=== PATIENT | male | born 1975 | race Caucasian/White ===

== ENCOUNTER 2022-02-26 09:48 | Inpatient (IN) | payer MEDICARE, MEDICAID ==
[~2022-02-26] VITALS: Ht 175.3 cm; Wt 91.3 kg
[2022-02-26 10:43] LABS: HEMATOCRIT 42.2 % (42.0-52.0); HEMOGLOBIN 14.2 g/dl (13.5-17.5); MEAN CORPUSCULAR HEMOGLOBIN 31.4 pg (27.0-33.0); MEAN CORPUSCULAR HGB CONC 33.6 g/dl (32.0-36.5); MEAN CORPUSCULAR VOLUME 93.4 fl (80.0-96.0); PLATELET COUNT, AUTOMATED 222 10^3/uL (150-450); RED BLOOD COUNT 4.52 10^6/uL (4.30-6.10); WHITE BLOOD COUNT 10.1 10^3/uL (4.0-10.0)
[2022-02-26 11:12] LABS: AMPHETAMINES LEVEL URINE NEGATIVE (NEGATIVE); BARBITURATES URINE NEGATIVE (NEGATIVE); BENZODIAZEPINES URINE NEGATIVE (NEGATIVE); CANNABINOIDS URINE NEGATIVE (NEGATIVE); COCAINE METABOLITE URINE NEGATIVE (NEGATIVE); METHADONE URINE NEGATIVE (NEGATIVE); OPIATES URINE NEGATIVE (NEGATIVE); PHENCYCLIDINE URINE NEGATIVE (NEGATIVE)
[2022-02-26 11:20] LABS: ACETAMINOPHEN LEVEL < 2.0 UG/ML (10.0-30.0); ALBUMIN 3.3 GM/DL (3.2-5.2); ALT/SGPT 101 U/L (12-78); BILIRUBIN,DIRECT 0.1 MG/DL (0.0-0.2); BILIRUBIN,TOTAL 0.4 MG/DL (0.2-1.0); BLOOD UREA NITROGEN 14 MG/DL (7-18); CARBON DIOXIDE LEVEL 24 MEQ/L (21-32); CHLORIDE LEVEL 110 MEQ/L (98-107); ETHYL ALCOHOL (ETHANOL) < 0.003 % (0.000-0.010); GLOMERULAR FILTRATION RATE > 60.0 (>60); GLUCOSE, FASTING 98 MG/DL (70-100); POTASSIUM SERUM 4.1 MEQ/L (3.5-5.1); SODIUM LEVEL 141 MEQ/L (136-145); TOTAL PROTEIN 6.8 GM/DL (6.4-8.2)
[2022-02-26 11:26] LABS: RSV AMPLIFICATION NEGATIVE (NEGATIVE)
[2022-02-26] MEDS ORDERED: MOM 30ML SUSPENSION UDC PO PRN (12:40)
[2022-02-26] MEDS ORDERED: DIVA250T67 PO (13:42)
[2022-02-26] MEDS ORDERED: VASC1CAP2 PO (13:42)
[2022-02-26] MEDS ORDERED: DIVA500T94 PO (13:42)
[2022-02-26] MEDS ORDERED: ANOR1AER INH (13:42)
[2022-02-26] MEDS ORDERED: BENZ2TAB5 PO (13:42)
[2022-02-26] MEDS ORDERED: INVE156I IM (13:42)
[2022-02-26] MEDS ORDERED: QUET400T2 PO (13:42)
[2022-02-26] MEDS ORDERED: CLON0.5T2 PO (13:42)
[2022-02-26] MEDS ORDERED: ALBU8.5H INH (13:42)
[2022-02-26] MEDS ORDERED: HOME MED LIST COMPLETE! XX SCH (13:45)
[2022-02-26 17:35] VITALS: BP 122/73
[2022-02-26] MEDS: NICOTINE 21MG/24HR 1 EA TRANSDERMAL TD SCH (17:40)
[2022-02-26] MEDS: ACETAMINOPHEN TAB 650MG DOSE (2X325MG) PO PRN (19:35)
[2022-02-26] MEDS: traZODone 50 MG TAB PO PRN (21:31)
[2022-02-27] MEDS: ALBUTEROL 90 MCG/ACT 8GM HFA INHALER INH PRN ×2 (01:00→20:36)
[2022-02-27] MEDS: ACETAMINOPHEN TAB 650MG DOSE (2X325MG) PO PRN ×3 (01:47→20:37)
[2022-02-27] MEDS: LORazepam 1 MG TAB PO PRN ×2 (02:38→10:17)
[2022-02-27 06:49] VITALS: BP 116/56
[2022-02-27] MEDS: SALMETEROL DISKUS 50MCG INHALER (SEREVENT) INH SCH ×2 (08:31→20:06)
[2022-02-27] MEDS: TIOTROPIUM INHALER/CAPSULE (SPIRIVA) INH SCH (08:31)
[2022-02-27] MEDS: NICOTINE 21MG/24HR 1 EA TRANSDERMAL TD SCH (08:39)
[2022-02-27] MEDS: BENZTROPINE 2 MG TAB PO SCH ×2 (11:49→20:07)
[2022-02-27] MEDS: DIVALPROEX 250 MG TAB PO SCH (11:49)
[2022-02-27 18:00] VITALS: BP 126/82
[2022-02-27] MEDS: DIVALPROEX 500 MG TAB PO SCH (20:06)
[2022-02-27] MEDS: QUEtiapine FUMARATE 200 MG TAB PO SCH (20:07)
[2022-02-27] MEDS: traZODone 50 MG TAB PO PRN (20:37)
[2022-02-28] MEDS: ACETAMINOPHEN TAB 650MG DOSE (2X325MG) PO PRN ×3 (06:34→20:08)
[2022-02-28] MEDS: LORazepam 1 MG TAB PO PRN (06:34)
[2022-02-28 07:09] VITALS: BP 149/81
[2022-02-28] MEDS: BENZTROPINE 2 MG TAB PO SCH ×2 (08:46→20:09)
[2022-02-28] MEDS: SALMETEROL DISKUS 50MCG INHALER (SEREVENT) INH SCH ×2 (08:46→19:22)
[2022-02-28] MEDS: TIOTROPIUM INHALER/CAPSULE (SPIRIVA) INH SCH (08:46)
[2022-02-28] MEDS: DIVALPROEX 250 MG TAB PO SCH (08:47)
[2022-02-28] MEDS ORDERED: DIVALPROEX 250 MG TAB PO ONE (09:25)
[2022-02-28] MEDS: NICOTINE 21MG/24HR 1 EA TRANSDERMAL TD SCH (09:46)
[2022-02-28] MEDS: ALBUTEROL 90 MCG/ACT 8GM HFA INHALER INH PRN (12:51)
[2022-02-28 18:57] VITALS: BP 148/90
[2022-02-28] MEDS: traZODone 50 MG TAB PO PRN (20:08)
[2022-02-28] MEDS: DIVALPROEX 500 MG TAB PO SCH (20:09)
[2022-02-28] MEDS: QUEtiapine FUMARATE 200 MG TAB PO SCH (20:10)
[2022-03-01 06:12] VITALS: BP 124/84
[2022-03-01] MEDS: SALMETEROL DISKUS 50MCG INHALER (SEREVENT) INH SCH ×2 (08:15→20:02)
[2022-03-01] MEDS: BENZTROPINE 2 MG TAB PO SCH ×2 (08:16→20:03)
[2022-03-01] MEDS: NICOTINE 21MG/24HR 1 EA TRANSDERMAL TD SCH (08:16)
[2022-03-01] MEDS: TIOTROPIUM INHALER/CAPSULE (SPIRIVA) INH SCH (08:16)
[2022-03-01] MEDS: DIVALPROEX 250 MG TAB PO SCH (08:16)
[2022-03-01] MEDS: ALBUTEROL 90 MCG/ACT 8GM HFA INHALER INH PRN (08:19)
[2022-03-01] MEDS ORDERED: NICO21PAT TD (08:48)
[2022-03-01] MEDS ORDERED: DIVA500T94 PO (08:48)
[2022-03-01] MEDS ORDERED: INVE156I IM (08:48)
[2022-03-01] MEDS ORDERED: TRAZ-252 PO (08:48)
[2022-03-01] MEDS ORDERED: QUET400T2 PO (08:48)
[2022-03-01] MEDS ORDERED: DIVALPROEX 250 MG TAB PO ONE (09:00)
[2022-03-01] MEDS: LORazepam 1 MG TAB PO PRN (13:32)
[2022-03-01] MEDS: ACETAMINOPHEN TAB 650MG DOSE (2X325MG) PO PRN ×2 (13:33→23:18)
[2022-03-01 18:52] VITALS: BP 158/91
[2022-03-01] MEDS: traZODone 50 MG TAB PO PRN (20:03)
[2022-03-01] MEDS: DIVALPROEX 500 MG TAB PO SCH (20:03)
[2022-03-01] MEDS: QUEtiapine FUMARATE 200 MG TAB PO SCH (20:03)
[2022-03-02] MEDS: MAALOX 30 ML SUSP *UDC PO PRN (03:50)
[2022-03-02] MEDS: LORazepam 1 MG TAB PO PRN (05:11)
[2022-03-02 07:11] VITALS: BP 137/85
[2022-03-02] MEDS: DIVALPROEX 250 MG TAB PO SCH (08:01)
[2022-03-02] MEDS: SALMETEROL DISKUS 50MCG INHALER (SEREVENT) INH SCH ×2 (08:01→20:28)
[2022-03-02] MEDS: TIOTROPIUM INHALER/CAPSULE (SPIRIVA) INH SCH (08:01)
[2022-03-02] MEDS: NICOTINE 21MG/24HR 1 EA TRANSDERMAL TD SCH ×2 (08:01→08:30)
[2022-03-02] MEDS: BENZTROPINE 2 MG TAB PO SCH ×2 (08:01→20:29)
[2022-03-02] MEDS: ALBUTEROL 90 MCG/ACT 8GM HFA INHALER INH PRN ×2 (08:08→13:33)
[2022-03-02 18:00] VITALS: BP 162/92
[2022-03-02] MEDS: ACETAMINOPHEN TAB 650MG DOSE (2X325MG) PO PRN (19:27)
[2022-03-02] MEDS: traZODone 50 MG TAB PO PRN (20:29)
[2022-03-02] MEDS: QUEtiapine FUMARATE 200 MG TAB PO SCH (20:30)
[2022-03-02] MEDS: DIVALPROEX 500 MG TAB PO SCH (20:30)
[2022-03-03] MEDS: ACETAMINOPHEN TAB 650MG DOSE (2X325MG) PO PRN (05:48)
[2022-03-03] MEDS: MAALOX 30 ML SUSP *UDC PO PRN (05:49)
[2022-03-03] MEDS: TIOTROPIUM INHALER/CAPSULE (SPIRIVA) INH SCH (07:23)
[2022-03-03] MEDS: SALMETEROL DISKUS 50MCG INHALER (SEREVENT) INH SCH ×2 (07:23→19:03)
[2022-03-03] MEDS: LORazepam 1 MG TAB PO PRN ×2 (07:24→19:54)
[2022-03-03] MEDS: NICOTINE 21MG/24HR 1 EA TRANSDERMAL TD SCH (08:17)
[2022-03-03] MEDS: BENZTROPINE 2 MG TAB PO SCH ×2 (08:17→20:11)
[2022-03-03] MEDS: DIVALPROEX 250 MG TAB PO SCH (08:18)
[2022-03-03] MEDS: ALBUTEROL 90 MCG/ACT 8GM HFA INHALER INH PRN ×2 (12:26→20:13)
[2022-03-03 18:00] VITALS: BP 150/83
[2022-03-03] MEDS: DIVALPROEX 500 MG TAB PO SCH (20:10)
[2022-03-03] MEDS: QUEtiapine FUMARATE 200 MG TAB PO SCH (20:10)
[2022-03-03] MEDS: traZODone 50 MG TAB PO PRN (20:11)
[2022-03-04 06:52] VITALS: BP 138/88
[2022-03-04] MEDS: SALMETEROL DISKUS 50MCG INHALER (SEREVENT) INH SCH ×2 (07:44→19:26)
[2022-03-04] MEDS: TIOTROPIUM INHALER/CAPSULE (SPIRIVA) INH SCH (07:44)
[2022-03-04] MEDS: BENZTROPINE 2 MG TAB PO SCH ×2 (08:30→20:01)
[2022-03-04] MEDS: DIVALPROEX 250 MG TAB PO SCH (08:32)
[2022-03-04] MEDS: NICOTINE 21MG/24HR 1 EA TRANSDERMAL TD SCH (08:32)
[2022-03-04] MEDS: PALIPERIDONE 3 MG ER TAB (INVEGA) PO SCH ×2 (09:21→20:01)
[2022-03-04 18:00] VITALS: BP 136/88
[2022-03-04] MEDS: QUEtiapine FUMARATE 200 MG TAB PO SCH (20:01)
[2022-03-04] MEDS: DIVALPROEX 500 MG TAB PO SCH (20:01)
[2022-03-04] MEDS: traZODone 50 MG TAB PO PRN (20:01)
[2022-03-04] MEDS: ACETAMINOPHEN TAB 650MG DOSE (2X325MG) PO PRN (23:30)
[2022-03-05] MEDS: LORazepam 1 MG TAB PO PRN ×2 (03:51→17:31)
[2022-03-05] MEDS: BENZTROPINE 2 MG TAB PO SCH ×2 (08:03→20:34)
[2022-03-05] MEDS: PALIPERIDONE 3 MG ER TAB (INVEGA) PO SCH ×2 (08:03→20:34)
[2022-03-05] MEDS: SALMETEROL DISKUS 50MCG INHALER (SEREVENT) INH SCH ×2 (08:03→20:34)
[2022-03-05] MEDS: DIVALPROEX 250 MG TAB PO SCH (08:04)
[2022-03-05] MEDS: TIOTROPIUM INHALER/CAPSULE (SPIRIVA) INH SCH (08:04)
[2022-03-05] MEDS: NICOTINE 21MG/24HR 1 EA TRANSDERMAL TD SCH (08:05)
[2022-03-05] MEDS: ACETAMINOPHEN TAB 650MG DOSE (2X325MG) PO PRN (13:42)
[2022-03-05] MEDS: ALBUTEROL 90 MCG/ACT 8GM HFA INHALER INH PRN (17:32)
[2022-03-05] MEDS: DIVALPROEX 500 MG TAB PO SCH (20:34)
[2022-03-05] MEDS: traZODone 50 MG TAB PO PRN (20:34)
[2022-03-05] MEDS: QUEtiapine FUMARATE 200 MG TAB PO SCH (20:34)
[2022-03-06 06:30] VITALS: BP 125/77
[2022-03-06] MEDS: SALMETEROL DISKUS 50MCG INHALER (SEREVENT) INH SCH ×2 (08:01→20:07)
[2022-03-06] MEDS: NICOTINE 21MG/24HR 1 EA TRANSDERMAL TD SCH (08:01)
[2022-03-06] MEDS: DIVALPROEX 250 MG TAB PO SCH (08:02)
[2022-03-06] MEDS: BENZTROPINE 2 MG TAB PO SCH ×2 (08:02→20:07)
[2022-03-06] MEDS: PALIPERIDONE 3 MG ER TAB (INVEGA) PO SCH (08:02)
[2022-03-06] MEDS: TIOTROPIUM INHALER/CAPSULE (SPIRIVA) INH SCH (08:02)
[2022-03-06] MEDS ORDERED: PALIPERIDONE 3 MG ER TAB (INVEGA) PO ONE (08:25)
[2022-03-06] MEDS: LORazepam 1 MG TAB PO PRN (13:33)
[2022-03-06] MEDS: ACETAMINOPHEN TAB 650MG DOSE (2X325MG) PO PRN (17:33)
[2022-03-06 18:35] VITALS: BP 157/72
[2022-03-06] MEDS: QUEtiapine FUMARATE 200 MG TAB PO SCH (20:07)
[2022-03-06] MEDS: DIVALPROEX 500 MG TAB PO SCH (20:07)
[2022-03-06] MEDS: PALIPERIDONE 6 MG ER TAB (INVEGA) PO SCH (20:08)
[2022-03-07] MEDS: LORazepam 1 MG TAB PO PRN ×2 (04:37→13:06)
[2022-03-07] MEDS: ACETAMINOPHEN TAB 650MG DOSE (2X325MG) PO PRN ×2 (04:38→18:51)
[2022-03-07 07:11] VITALS: BP 132/89
[2022-03-07] MEDS: NICOTINE 21MG/24HR 1 EA TRANSDERMAL TD SCH ×2 (09:00→13:39)
[2022-03-07] MEDS: SALMETEROL DISKUS 50MCG INHALER (SEREVENT) INH SCH ×2 (09:01→19:46)
[2022-03-07] MEDS: TIOTROPIUM INHALER/CAPSULE (SPIRIVA) INH SCH (09:02)
[2022-03-07] MEDS: BENZTROPINE 2 MG TAB PO SCH ×2 (09:03→19:48)
[2022-03-07] MEDS: DIVALPROEX 250 MG TAB PO SCH (09:03)
[2022-03-07] MEDS: PALIPERIDONE 6 MG ER TAB (INVEGA) PO SCH ×2 (09:03→19:48)
[2022-03-07] MEDS: ALBUTEROL 90 MCG/ACT 8GM HFA INHALER INH PRN ×2 (15:09→19:47)
[2022-03-07 18:41] VITALS: BP 128/72
[2022-03-07] MEDS: DIVALPROEX 500 MG TAB PO SCH (19:47)
[2022-03-07] MEDS: QUEtiapine FUMARATE 200 MG TAB PO SCH (19:48)
[2022-03-07] MEDS: traZODone 50 MG TAB PO PRN (19:49)
[2022-03-08] MEDS: ACETAMINOPHEN TAB 650MG DOSE (2X325MG) PO PRN ×3 (00:26→20:21)
[2022-03-08] MEDS: LORazepam 1 MG TAB PO PRN ×2 (00:56→14:26)
[2022-03-08] MEDS: MAALOX 30 ML SUSP *UDC PO PRN (01:16)
[2022-03-08 07:04] VITALS: BP 127/60
[2022-03-08] MEDS: SALMETEROL DISKUS 50MCG INHALER (SEREVENT) INH SCH ×2 (08:01→20:21)
[2022-03-08] MEDS: TIOTROPIUM INHALER/CAPSULE (SPIRIVA) INH SCH (08:01)
[2022-03-08] MEDS: PALIPERIDONE 6 MG ER TAB (INVEGA) PO SCH ×2 (08:04→20:21)
[2022-03-08] MEDS: BENZTROPINE 2 MG TAB PO SCH ×2 (08:04→20:22)
[2022-03-08] MEDS: DIVALPROEX 250 MG TAB PO SCH (08:05)
[2022-03-08] MEDS: NICOTINE 21MG/24HR 1 EA TRANSDERMAL TD SCH (08:06)
[2022-03-08] MEDS: ALBUTEROL 90 MCG/ACT 8GM HFA INHALER INH PRN ×2 (09:30→20:53)
[2022-03-08 18:38] VITALS: BP 139/86
[2022-03-08] MEDS: QUEtiapine FUMARATE 200 MG TAB PO SCH (20:21)
[2022-03-08] MEDS: DIVALPROEX 500 MG TAB PO SCH (20:22)
[2022-03-09] MEDS: MAALOX 30 ML SUSP *UDC PO PRN (02:02)
[2022-03-09 06:32] VITALS: BP 128/77
[2022-03-09] MEDS: SALMETEROL DISKUS 50MCG INHALER (SEREVENT) INH SCH ×2 (08:13→20:22)
[2022-03-09] MEDS: TIOTROPIUM INHALER/CAPSULE (SPIRIVA) INH SCH (08:13)
[2022-03-09] MEDS: DIVALPROEX 250 MG TAB PO SCH (08:14)
[2022-03-09] MEDS: NICOTINE 21MG/24HR 1 EA TRANSDERMAL TD SCH (08:14)
[2022-03-09] MEDS: BENZTROPINE 2 MG TAB PO SCH ×2 (08:14→20:23)
[2022-03-09] MEDS: ALBUTEROL 90 MCG/ACT 8GM HFA INHALER INH PRN ×2 (08:16→17:45)
[2022-03-09] MEDS: PALIPERIDONE 6 MG ER TAB (INVEGA) PO SCH ×2 (10:16→20:23)
[2022-03-09] MEDS: ACETAMINOPHEN TAB 650MG DOSE (2X325MG) PO PRN (11:45)
[2022-03-09 18:00] VITALS: BP 132/78
[2022-03-09] MEDS: QUEtiapine FUMARATE 200 MG TAB PO SCH (20:23)
[2022-03-09] MEDS: DIVALPROEX 500 MG TAB PO SCH (20:23)
[2022-03-10] MEDS: ACETAMINOPHEN TAB 650MG DOSE (2X325MG) PO PRN ×2 (01:05→14:00)
[2022-03-10] MEDS: MAALOX 30 ML SUSP *UDC PO PRN ×2 (01:22→21:35)
[2022-03-10] MEDS: LORazepam 1 MG TAB PO PRN (03:41)
[2022-03-10] MEDS: NICOTINE 21MG/24HR 1 EA TRANSDERMAL TD SCH (08:35)
[2022-03-10] MEDS: PALIPERIDONE 6 MG ER TAB (INVEGA) PO SCH ×2 (08:37→19:58)
[2022-03-10] MEDS: BENZTROPINE 2 MG TAB PO SCH ×2 (08:37→19:58)
[2022-03-10] MEDS: SALMETEROL DISKUS 50MCG INHALER (SEREVENT) INH SCH ×2 (08:37→19:58)
[2022-03-10] MEDS: DIVALPROEX 250 MG TAB PO SCH (08:39)
[2022-03-10] MEDS: TIOTROPIUM INHALER/CAPSULE (SPIRIVA) INH SCH (08:51)
[2022-03-10 18:00] VITALS: BP 144/86
[2022-03-10] MEDS: DIVALPROEX 500 MG TAB PO SCH (19:58)
[2022-03-10] MEDS: QUEtiapine FUMARATE 200 MG TAB PO SCH (19:58)
[2022-03-11] MEDS: ACETAMINOPHEN TAB 650MG DOSE (2X325MG) PO PRN ×2 (02:48→16:12)
[2022-03-11] MEDS: BENZTROPINE 2 MG TAB PO SCH ×2 (08:39→20:05)
[2022-03-11] MEDS: PALIPERIDONE 6 MG ER TAB (INVEGA) PO SCH ×2 (08:39→20:05)
[2022-03-11] MEDS: TIOTROPIUM INHALER/CAPSULE (SPIRIVA) INH SCH (08:40)
[2022-03-11] MEDS: NICOTINE 21MG/24HR 1 EA TRANSDERMAL TD SCH (08:40)
[2022-03-11] MEDS: SALMETEROL DISKUS 50MCG INHALER (SEREVENT) INH SCH ×2 (08:40→20:04)
[2022-03-11] MEDS: DIVALPROEX 250 MG TAB PO SCH (08:40)
[2022-03-11] MEDS: LORazepam 1 MG TAB PO PRN (11:59)
[2022-03-11 18:00] VITALS: BP 116/71
[2022-03-11] MEDS: DIVALPROEX 500 MG TAB PO SCH (20:05)
[2022-03-11] MEDS: QUEtiapine FUMARATE 200 MG TAB PO SCH (20:05)
[2022-03-12] MEDS: ACETAMINOPHEN TAB 650MG DOSE (2X325MG) PO PRN ×2 (05:25→09:58)
[2022-03-12 06:34] VITALS: BP 140/74
[2022-03-12] MEDS: SALMETEROL DISKUS 50MCG INHALER (SEREVENT) INH SCH (07:52)
[2022-03-12] MEDS: ALBUTEROL 90 MCG/ACT 8GM HFA INHALER INH PRN (07:52)
[2022-03-12] MEDS: TIOTROPIUM INHALER/CAPSULE (SPIRIVA) INH SCH (07:52)
[2022-03-12] MEDS: BENZTROPINE 2 MG TAB PO SCH (07:53)
[2022-03-12] MEDS: PALIPERIDONE 6 MG ER TAB (INVEGA) PO SCH (07:53)
[2022-03-12] MEDS: DIVALPROEX 250 MG TAB PO SCH (07:53)
[2022-03-12] MEDS: NICOTINE 21MG/24HR 1 EA TRANSDERMAL TD SCH (07:56)
[2022-03-12] MEDS ORDERED: PALI1TAB3 PO (08:41)
== END 2022-03-12 13:04 | disposition home or self-care (01) | DRG 885 ==
LOC: M ED 09:48 → M ED INP 12:40 → M PSY 17:11
PROVIDERS: ADMIT Student in an Organized Health Care Education/Training Program; ATTEND Student in an Organized Health Care Education/Training Program
DX: F25.0 Schizoaffective disorder, bipolar type (principal); F17.210 Nicotine dependence, cigarettes, uncomplicated; I10 Essential (primary) hypertension; E78.5 Hyperlipidemia, unspecified; J44.9 Chronic obstructive pulmonary disease, unspecified; G40.909 Epilepsy, unspecified, not intractable, without status epilepticus; F90.9 Attention-deficit hyperactivity disorder, unspecified type; M54.9 Dorsalgia, unspecified; G89.29 Other chronic pain; Z20.822 Contact with and (suspected) exposure to COVID-19; Z79.899 Other long term (current) drug therapy; Z88.0 Allergy status to penicillin; Z88.6 Allergy status to analgesic agent; Z91.013 Allergy to seafood

== ENCOUNTER 2022-03-12 23:17 | Emergency (ER) | payer MEDICARE, MEDICAID ==
[~2022-03-12] VITALS: Ht 175.3 cm; Wt 93.2 kg
[~2022-03-12 23:17] MED LIST: ALBU8.5H INH; ANOR1AER INH; BENZ2TAB5 PO; CLON0.5T2 PO; DIVA250T67 PO; DIVA500T94 PO; INVE156I IM; NICO21PAT TD; PALI1TAB3 PO; QUET400T2 PO; TRAZ-252 PO; VASC1CAP2 PO
[2022-03-12 23:22] VITALS: BP 136/89
== END 2022-03-12 23:49 | disposition left against medical advice (07) ==
LOC: EDBD 23:17 → M ED 23:17
DX: Z53.29 Procedure and treatment not carried out because of patient's decision for other reasons (principal)

== ENCOUNTER 2022-03-29 12:38 | Inpatient (IN) | payer MEDICARE, MEDICAID ==
[~2022-03-29] VITALS: Ht 175.3 cm; Wt 93.2 kg
[2022-03-29 13:28] LABS: HEMATOCRIT 42.4 % (42.0-52.0); HEMOGLOBIN 14.3 g/dl (13.5-17.5); MEAN CORPUSCULAR HEMOGLOBIN 31.4 pg (27.0-33.0); MEAN CORPUSCULAR HGB CONC 33.7 g/dl (32.0-36.5); MEAN CORPUSCULAR VOLUME 93.2 fl (80.0-96.0); PLATELET COUNT, AUTOMATED 266 10^3/uL (150-450); RED BLOOD COUNT 4.55 10^6/uL (4.30-6.10); WHITE BLOOD COUNT 8.2 10^3/uL (4.0-10.0)
[2022-03-29 14:05] LABS: AMPHETAMINES LEVEL URINE NEGATIVE (NEGATIVE); BARBITURATES URINE NEGATIVE (NEGATIVE); BENZODIAZEPINES URINE NEGATIVE (NEGATIVE); CANNABINOIDS URINE NEGATIVE (NEGATIVE); COCAINE METABOLITE URINE NEGATIVE (NEGATIVE); METHADONE URINE NEGATIVE (NEGATIVE); OPIATES URINE NEGATIVE (NEGATIVE); PHENCYCLIDINE URINE NEGATIVE (NEGATIVE)
[2022-03-29 14:10] LABS: RSV AMPLIFICATION NEGATIVE (NEGATIVE)
[2022-03-29 14:15] LABS: ACETAMINOPHEN LEVEL < 2.0 UG/ML (10.0-30.0); ALBUMIN 3.4 GM/DL (3.2-5.2); ALT/SGPT 97 U/L (12-78); BILIRUBIN,DIRECT 0.2 MG/DL (0.0-0.2); BILIRUBIN,TOTAL 0.2 MG/DL (0.2-1.0); BLOOD UREA NITROGEN 8 MG/DL (7-18); CALCIUM LEVEL 8.9 MG/DL (8.5-10.1); CARBON DIOXIDE LEVEL 24 MEQ/L (21-32); CHLORIDE LEVEL 106 MEQ/L (98-107); CREATININE FOR GFR 0.62 MG/DL (0.70-1.30); ETHYL ALCOHOL (ETHANOL) < 0.003 % (0.000-0.010); GLOMERULAR FILTRATION RATE > 60.0 (>60); GLUCOSE, FASTING 89 MG/DL (70-100); POTASSIUM SERUM 3.8 MEQ/L (3.5-5.1); SALICYLATE LEVEL 6.5 MG/DL (5.0-30.0); SODIUM LEVEL 135 MEQ/L (136-145); THYROID STIMULATING HORMONE 0.711 uIU/ML (0.358-3.740); TOTAL PROTEIN 6.7 GM/DL (6.4-8.2)
[2022-03-29 15:06] LABS: VALPROIC ACID (DEPAKOTE) 77.7 UG/ML (50.0-100.0)
[2022-03-29] MEDS ORDERED: QUET400T2 PO (15:37)
[2022-03-29] MEDS ORDERED: TRAZ-186 PO (15:37)
[2022-03-29] MEDS ORDERED: PALI1TAB3 PO (15:38)
[2022-03-29] MEDS ORDERED: DIVA500T94 PO (15:38)
[2022-03-29] MEDS ORDERED: NICO21PAT TOP (15:38)
[2022-03-29] MEDS ORDERED: INVE156I IM (15:38)
[2022-03-29] MEDS ORDERED: HOME MED LIST COMPLETE! XX SCH (15:40)
[2022-03-29] MEDS: BENZTROPINE 2 MG TAB PO SCH (21:31)
[2022-03-29] MEDS: DIVALPROEX 500 MG TAB PO SCH (21:32)
[2022-03-29] MEDS: traZODone 50 MG TAB PO SCH (21:32)
[2022-03-29] MEDS: QUEtiapine FUMARATE 200 MG TAB PO SCH (21:33)
[2022-03-29] MEDS: clonazePAM 0.5 MG TAB PO SCH (21:33)
[2022-03-30] MEDS: PALIPERIDONE 6 MG ER TAB (INVEGA) PO SCH (09:33)
[2022-03-30] MEDS: clonazePAM 0.5 MG TAB PO SCH ×2 (09:33→21:04)
[2022-03-30] MEDS: DIVALPROEX 500 MG TAB PO SCH ×2 (09:33→21:04)
[2022-03-30] MEDS: BENZTROPINE 2 MG TAB PO SCH ×2 (11:41→21:00)
[2022-03-30] MEDS: QUEtiapine FUMARATE 200 MG TAB PO SCH (21:04)
[2022-03-30] MEDS: traZODone 50 MG TAB PO SCH (21:04)
[2022-03-31] MEDS: DIVALPROEX 500 MG TAB PO SCH ×2 (09:14→19:30)
[2022-03-31] MEDS: clonazePAM 0.5 MG TAB PO SCH ×2 (09:14→19:30)
[2022-03-31] MEDS: PALIPERIDONE 6 MG ER TAB (INVEGA) PO SCH (09:14)
[2022-03-31] MEDS: BENZTROPINE 2 MG TAB PO SCH ×2 (09:15→19:29)
[2022-03-31] MEDS ORDERED: ACETAMINOPHEN TAB 650MG DOSE (2X325MG) PO ONE (15:25)
[2022-03-31] MEDS: traZODone 50 MG TAB PO SCH (19:30)
[2022-03-31] MEDS: QUEtiapine FUMARATE 200 MG TAB PO SCH (19:30)
[2022-04-01] MEDS: PALIPERIDONE 6 MG ER TAB (INVEGA) PO SCH (08:33)
[2022-04-01] MEDS: BENZTROPINE 2 MG TAB PO SCH ×2 (08:33→20:11)
[2022-04-01] MEDS: DIVALPROEX 500 MG TAB PO SCH ×2 (08:33→20:11)
[2022-04-01] MEDS: clonazePAM 0.5 MG TAB PO SCH ×2 (08:33→20:12)
[2022-04-01 13:11] LABS: RSV AMPLIFICATION NEGATIVE (NEGATIVE)
[2022-04-01] MEDS ORDERED: ACETAMINOPHEN TAB 650MG DOSE (2X325MG) PO ONE (14:00)
[2022-04-01] MEDS ORDERED: MOM 30ML SUSPENSION UDC PO PRN (16:00)
[2022-04-01 17:55] VITALS: BP 142/84
[2022-04-01] MEDS: QUEtiapine FUMARATE 200 MG TAB PO SCH (20:11)
[2022-04-01] MEDS: ACETAMINOPHEN TAB 650MG DOSE (2X325MG) PO PRN (22:41)
[2022-04-01] MEDS: MAALOX 30 ML SUSP *UDC PO PRN (23:43)
[2022-04-02] MEDS ORDERED: FIORICET TAB PO ONE (02:00)
[2022-04-02] MEDS ORDERED: diphenhydrAMINE 50MG CAP PO ONE (02:00)
[2022-04-02] MEDS ORDERED: METOCLOPRAMIDE 5 MG TAB PO ONE (03:00)
[2022-04-02 06:35] VITALS: BP 110/66
[2022-04-02] MEDS: PALIPERIDONE 6 MG ER TAB (INVEGA) PO SCH (08:12)
[2022-04-02] MEDS: BENZTROPINE 2 MG TAB PO SCH ×2 (08:12→20:10)
[2022-04-02] MEDS: DIVALPROEX 500 MG TAB PO SCH ×2 (08:13→20:09)
[2022-04-02] MEDS: clonazePAM 0.5 MG TAB PO SCH ×2 (08:13→20:09)
[2022-04-02] MEDS: NICOTINE 21MG/24HR 1 EA TRANSDERMAL TD PRN (08:16)
[2022-04-02] MEDS: MAALOX 30 ML SUSP *UDC PO PRN ×2 (10:37→21:02)
[2022-04-02] MEDS ORDERED: ALBUTEROL 90 MCG/ACT 8GM HFA INHALER INH PRN (11:35)
[2022-04-02] MEDS: ADVAIR HFA 230/21MCG INHALER INH SCH ×2 (12:12→20:08)
[2022-04-02 18:27] VITALS: BP 142/82
[2022-04-02] MEDS: QUEtiapine FUMARATE 200 MG TAB PO SCH (20:10)
[2022-04-02] MEDS: traZODone 50 MG TAB PO PRN (21:26)
[2022-04-03] MEDS: clonazePAM 0.5 MG TAB PO SCH ×2 (08:22→20:12)
[2022-04-03] MEDS: DIVALPROEX 500 MG TAB PO SCH ×2 (08:22→20:12)
[2022-04-03] MEDS: ADVAIR HFA 230/21MCG INHALER INH SCH ×2 (08:22→20:11)
[2022-04-03] MEDS: BENZTROPINE 2 MG TAB PO SCH ×2 (08:22→20:12)
[2022-04-03] MEDS: PALIPERIDONE 6 MG ER TAB (INVEGA) PO SCH (08:22)
[2022-04-03] MEDS: NICOTINE 21MG/24HR 1 EA TRANSDERMAL TD PRN (09:37)
[2022-04-03] MEDS: ACETAMINOPHEN TAB 650MG DOSE (2X325MG) PO PRN ×2 (10:38→18:12)
[2022-04-03 18:00] VITALS: BP 151/94
[2022-04-03] MEDS: QUEtiapine FUMARATE 200 MG TAB PO SCH (20:12)
[2022-04-03] MEDS: traZODone 50 MG TAB PO PRN (20:14)
[2022-04-04 07:50] VITALS: BP 111/71
[2022-04-04] MEDS: PALIPERIDONE 6 MG ER TAB (INVEGA) PO SCH (08:16)
[2022-04-04] MEDS: ADVAIR HFA 230/21MCG INHALER INH SCH ×2 (08:16→19:24)
[2022-04-04] MEDS: BENZTROPINE 2 MG TAB PO SCH ×2 (08:16→20:03)
[2022-04-04] MEDS: DIVALPROEX 500 MG TAB PO SCH ×2 (08:16→20:03)
[2022-04-04] MEDS: clonazePAM 0.5 MG TAB PO SCH ×2 (08:17→20:03)
[2022-04-04] MEDS: NICOTINE 21MG/24HR 1 EA TRANSDERMAL TD PRN (08:17)
[2022-04-04] MEDS: ACETAMINOPHEN TAB 650MG DOSE (2X325MG) PO PRN (11:31)
[2022-04-04 18:36] VITALS: BP 138/85
[2022-04-04] MEDS: QUEtiapine FUMARATE 200 MG TAB PO SCH (20:03)
[2022-04-04] MEDS: traZODone 50 MG TAB PO PRN (20:03)
[2022-04-05 06:26] VITALS: BP 124/67
[2022-04-05] MEDS: ADVAIR HFA 230/21MCG INHALER INH SCH ×2 (07:33→21:08)
[2022-04-05] MEDS: clonazePAM 0.5 MG TAB PO SCH ×2 (08:35→21:08)
[2022-04-05] MEDS: BENZTROPINE 2 MG TAB PO SCH ×2 (08:35→21:08)
[2022-04-05] MEDS: PALIPERIDONE 6 MG ER TAB (INVEGA) PO SCH (08:35)
[2022-04-05] MEDS: NICOTINE 21MG/24HR 1 EA TRANSDERMAL TD PRN (08:35)
[2022-04-05] MEDS: DIVALPROEX 500 MG TAB PO SCH ×2 (08:35→21:08)
[2022-04-05] MEDS ORDERED: PALIPERIDONE PAL 234MG/1.5ML INJ (INVEGA)(FREE PSY INPT ONLY) IM ONE (09:30)
[2022-04-05] MEDS: ACETAMINOPHEN TAB 650MG DOSE (2X325MG) PO PRN (15:03)
[2022-04-05 19:13] VITALS: BP 141/73
[2022-04-05] MEDS: QUEtiapine FUMARATE 200 MG TAB PO SCH (21:08)
[2022-04-05] MEDS: traZODone 50 MG TAB PO PRN (21:08)
[2022-04-06 06:49] VITALS: BP 135/68
[2022-04-06] MEDS: PALIPERIDONE 6 MG ER TAB (INVEGA) PO SCH (08:03)
[2022-04-06] MEDS: BENZTROPINE 2 MG TAB PO SCH ×2 (08:03→20:06)
[2022-04-06] MEDS: clonazePAM 0.5 MG TAB PO SCH ×2 (08:03→20:06)
[2022-04-06] MEDS: DIVALPROEX 500 MG TAB PO SCH ×2 (08:05→20:06)
[2022-04-06] MEDS: ADVAIR HFA 230/21MCG INHALER INH SCH ×2 (08:05→19:35)
[2022-04-06] MEDS: NICOTINE 21MG/24HR 1 EA TRANSDERMAL TD PRN (08:06)
[2022-04-06] MEDS: ACETAMINOPHEN TAB 650MG DOSE (2X325MG) PO PRN (09:08)
[2022-04-06] MEDS: QUEtiapine FUMARATE 200 MG TAB PO SCH (20:06)
[2022-04-07 06:36] VITALS: BP 141/82
[2022-04-07] MEDS: clonazePAM 0.5 MG TAB PO SCH ×2 (08:31→20:23)
[2022-04-07] MEDS: BENZTROPINE 2 MG TAB PO SCH ×2 (08:31→20:23)
[2022-04-07] MEDS: PALIPERIDONE 6 MG ER TAB (INVEGA) PO SCH (08:31)
[2022-04-07] MEDS: DIVALPROEX 500 MG TAB PO SCH ×2 (08:32→20:23)
[2022-04-07] MEDS: ADVAIR HFA 230/21MCG INHALER INH SCH ×2 (08:33→19:35)
[2022-04-07] MEDS: NICOTINE 21MG/24HR 1 EA TRANSDERMAL TD PRN (08:34)
[2022-04-07] MEDS ORDERED: LORazepam 2 MG TAB PO ONE (13:20)
[2022-04-07] MEDS ORDERED: diphenhydrAMINE 50MG CAP PO STA (13:20)
[2022-04-07 19:56] VITALS: BP 128/76
[2022-04-07] MEDS: QUEtiapine FUMARATE 200 MG TAB PO SCH (20:23)
[2022-04-08 06:26] VITALS: BP 141/85
[2022-04-08] MEDS: ADVAIR HFA 230/21MCG INHALER INH SCH ×2 (07:51→19:37)
[2022-04-08] MEDS: clonazePAM 0.5 MG TAB PO SCH ×2 (07:52→20:22)
[2022-04-08] MEDS: DIVALPROEX 500 MG TAB PO SCH ×2 (07:52→20:06)
[2022-04-08] MEDS: NICOTINE 21MG/24HR 1 EA TRANSDERMAL TD PRN (07:53)
[2022-04-08] MEDS: PALIPERIDONE 6 MG ER TAB (INVEGA) PO SCH (07:53)
[2022-04-08] MEDS: BENZTROPINE 2 MG TAB PO SCH ×2 (07:53→20:06)
[2022-04-08] MEDS: ACETAMINOPHEN TAB 650MG DOSE (2X325MG) PO PRN (11:44)
[2022-04-08 16:46] VITALS: BP 128/84
[2022-04-08] MEDS: QUEtiapine FUMARATE 200 MG TAB PO SCH (20:06)
[2022-04-09] MEDS: ACETAMINOPHEN TAB 650MG DOSE (2X325MG) PO PRN ×2 (03:43→21:21)
[2022-04-09 06:18] VITALS: BP 147/79
[2022-04-09] MEDS: BENZTROPINE 2 MG TAB PO SCH ×2 (08:58→21:19)
[2022-04-09] MEDS: PALIPERIDONE 6 MG ER TAB (INVEGA) PO SCH (08:58)
[2022-04-09] MEDS: ADVAIR HFA 230/21MCG INHALER INH SCH ×2 (08:58→19:25)
[2022-04-09] MEDS: DIVALPROEX 500 MG TAB PO SCH ×2 (08:58→21:19)
[2022-04-09] MEDS: NICOTINE 21MG/24HR 1 EA TRANSDERMAL TD PRN (08:58)
[2022-04-09] MEDS: clonazePAM 0.5 MG TAB PO SCH ×2 (08:58→21:20)
[2022-04-09 17:02] VITALS: BP 132/79
[2022-04-09] MEDS: QUEtiapine FUMARATE 200 MG TAB PO SCH (21:19)
[2022-04-09] MEDS: traZODone 50 MG TAB PO PRN (21:20)
[2022-04-10 07:38] VITALS: BP 137/69
[2022-04-10] MEDS: ADVAIR HFA 230/21MCG INHALER INH SCH (07:45)
[2022-04-10] MEDS: PALIPERIDONE 6 MG ER TAB (INVEGA) PO SCH (07:46)
[2022-04-10] MEDS: BENZTROPINE 2 MG TAB PO SCH (07:46)
[2022-04-10] MEDS: clonazePAM 0.5 MG TAB PO SCH (07:46)
[2022-04-10] MEDS: DIVALPROEX 500 MG TAB PO SCH (07:46)
[2022-04-10] MEDS ORDERED: TRAZ-252 PO (09:25)
[2022-04-10] MEDS ORDERED: INVE234I IM (09:25)
[2022-04-10] MEDS: ACETAMINOPHEN TAB 650MG DOSE (2X325MG) PO PRN (12:43)
== END 2022-04-10 13:14 | disposition home or self-care (01) | DRG 885 ==
LOC: M ED 12:38 → M ED INP 04-01 15:58 → M PSY 04-01 17:44
PROVIDERS: ADMIT Psychiatry & Neurology Psychiatry; ATTEND Student in an Organized Health Care Education/Training Program
DX: F25.0 Schizoaffective disorder, bipolar type (principal); F19.159 Other psychoactive substance abuse with psychoactive substance-induced psychotic disorder, unspecified; I10 Essential (primary) hypertension; E78.5 Hyperlipidemia, unspecified; G40.909 Epilepsy, unspecified, not intractable, without status epilepticus; J44.9 Chronic obstructive pulmonary disease, unspecified; M54.50 Low back pain, unspecified; G89.29 Other chronic pain; F17.200 Nicotine dependence, unspecified, uncomplicated; Z62.810 Personal history of physical and sexual abuse in childhood; Z79.899 Other long term (current) drug therapy; Z88.0 Allergy status to penicillin; Z88.6 Allergy status to analgesic agent; Z91.013 Allergy to seafood; Z91.040 Latex allergy status

== ENCOUNTER → 2022-08-26 | Outpatient (REF) | payer MEDICARE, MEDICAID ==
[~2022-08-26] MED LIST changes: +INVE234I IM; +NICO21PAT TOP; +TRAZ-186 PO
[2022-08-26 17:21] LABS: ALBUMIN 3.6 G/DL (3.2-5.2); ALKALINE PHOSPHATASE 67 U/L (46-116); ALT/SGPT 104 U/L (7.0-40); AST/SGOT 82 U/L (<34); BILIRUBIN,DIRECT < 0.1 MG/DL (<0.4); BILIRUBIN,TOTAL 0.3 MG/DL (0.3-1.2)
[2022-08-26 17:25] LABS: FERRITIN 80.1 NG/ML (10.5-307.3)
== END ==
LOC: M LAB REF 16:26
PROVIDERS: ATTEND Pediatrics
DX: R74.01 Elevation of levels of liver transaminase levels (principal)

== ENCOUNTER 2022-08-29 01:28 | Emergency (ER) | payer MEDICARE, MEDICAID ==
[~2022-08-29] VITALS: Ht 170.2 cm; Wt 94.5 kg
[2022-08-29 01:48] VITALS: BP 131/77
== END 2022-08-29 02:17 | disposition left against medical advice (07) ==
LOC: EDBD 01:28 → M ED 01:28
DX: Z53.21 Procedure and treatment not carried out due to patient leaving prior to being seen by health care provider (principal)

== ENCOUNTER → 2022-09-10 | Outpatient (CLI) | payer MEDICARE, MEDICAID | LOC: M RAD 10:18 | PROVIDERS: ATTEND Pediatrics | DX: M51.36 Other intervertebral disc degeneration, lumbar region (principal); M51.37 Other intervertebral disc degeneration, lumbosacral region ==

== ENCOUNTER → 2022-11-04 | Outpatient (CLI) | payer MEDICARE, MEDICAID ==
[2022-11-04 15:30] LABS: BASO # 0.1 10^3/uL (0.0-0.2); BASO % 0.6 % (0.0-1.0); EOS # 0.2 10^3/uL (0.0-0.5); EOS % 2.1 % (0.0-3.0); HEMATOCRIT 44.5 % (42.0-52.0); HEMOGLOBIN 15.1 g/dl (13.5-17.5); LYMPH # 2.5 10^3/uL (1.5-5.0); LYMPH % 28.9 % (24.0-44.0); MEAN CORPUSCULAR HEMOGLOBIN 30.9 pg (27.0-33.0); MEAN CORPUSCULAR HGB CONC 33.9 g/dl (32.0-36.5); MONO # 0.7 10^3/uL (0.0-0.8); MONO % 7.7 % (2.0-8.0); NEUTROPHILS # 5.1 10^3/uL (1.5-8.5); NEUTROPHILS % 59.5 % (36.0-66.0); PLATELET COUNT, AUTOMATED 247 10^3/uL (150-450); RED BLOOD COUNT 4.89 10^6/uL (4.30-6.10); WHITE BLOOD COUNT 8.5 10^3/uL (4.0-10.0)
[2022-11-04 16:05] LABS: VALPROIC ACID (DEPAKOTE) 60.9 UG/ML (50.0-100.0)
[2022-11-04 16:06] LABS: ALBUMIN 3.5 G/DL (3.2-5.2); ALKALINE PHOSPHATASE 67 U/L (46-116); ALT/SGPT 75 U/L (7.0-40); AST/SGOT 55 U/L (<34); BILIRUBIN,TOTAL 0.2 MG/DL (0.3-1.2); BLOOD UREA NITROGEN 12 MG/DL (9-23); CALCIUM LEVEL 9.3 MG/DL (8.5-10.1); CARBON DIOXIDE LEVEL 26 MMOL/L (20-31); CHLORIDE LEVEL 101 MMOL/L (98-107); CREATININE FOR GFR 0.54 MG/DL (0.70-1.30); GLOMERULAR FILTRATION RATE > 60.0 (>60); GLUCOSE, FASTING 101 MG/DL (60-100); POTASSIUM SERUM 4.5 MMOL/L (3.5-5.1); SODIUM LEVEL 134 MMOL/L (136-145); TOTAL PROTEIN 6.6 G/DL (5.7-8.2)
[2022-11-04 16:53] LABS: HEMOGLOBIN A1c 5.3 % (4.0-6.0)
== END ==
LOC: M LAB 14:56
PROVIDERS: ATTEND Student in an Organized Health Care Education/Training Program
DX: F31.9 Bipolar disorder, unspecified (principal)

== ENCOUNTER 2023-02-13 23:51 | Emergency (ER) | payer MEDICARE, MEDICAID ==
[~2023-02-13 23:51] MED LIST changes: +BENZ2TAB48 PO; -BENZ2TAB5 PO
[2023-02-14] VITALS: BP 141/82; TEMP 96.8; O2SAT 97
== END 2023-02-14 00:56 | disposition left against medical advice (07) ==
LOC: M ED 23:51 → EDBD 23:51 → M ED 02-14 00:56
DX: Z53.21 Procedure and treatment not carried out due to patient leaving prior to being seen by health care provider (principal)

== ENCOUNTER 2023-02-24 15:35 | Inpatient (IN) | payer MEDICARE, MEDICAID ==
[~2023-02-24] VITALS: Ht 175.3 cm; Wt 92.2 kg
[2023-02-24 16:34] LABS: HEMATOCRIT 44.4 % (42.0-52.0); HEMOGLOBIN 14.8 g/dl (13.5-17.5); MEAN CORPUSCULAR HEMOGLOBIN 30.9 pg (27.0-33.0); MEAN CORPUSCULAR HGB CONC 33.3 g/dl (32.0-36.5); MEAN CORPUSCULAR VOLUME 92.7 fl (80.0-96.0); PLATELET COUNT, AUTOMATED 271 10^3/uL (150-450); RED BLOOD COUNT 4.79 10^6/uL (4.30-6.10); WHITE BLOOD COUNT 9.5 10^3/uL (4.0-10.0)
[2023-02-24 16:55] LABS: AMPHETAMINES LEVEL URINE NEGATIVE (NEGATIVE); BARBITURATES URINE NEGATIVE (NEGATIVE); BENZODIAZEPINES URINE NEGATIVE (NEGATIVE); CANNABINOIDS URINE NEGATIVE (NEGATIVE); COCAINE METABOLITE URINE NEGATIVE (NEGATIVE); METHADONE URINE NEGATIVE (NEGATIVE); OPIATES URINE NEGATIVE (NEGATIVE); PHENCYCLIDINE URINE NEGATIVE (NEGATIVE)
[2023-02-24 16:59] LABS: ETHYL ALCOHOL (ETHANOL) < 0.003 % (0.000-0.010)
[2023-02-24 17:00] LABS: ACETAMINOPHEN LEVEL 2.1 UG/ML (10.0-20.0); ALBUMIN 3.8 G/DL (3.2-5.2); ALKALINE PHOSPHATASE 76 U/L (46-116); ALT/SGPT 116 U/L (7.0-40); AST/SGOT 90 U/L (<34); BILIRUBIN,DIRECT 0.1 MG/DL (<0.4); BILIRUBIN,TOTAL 0.5 MG/DL (0.3-1.2); BLOOD UREA NITROGEN 7 MG/DL (9-23); CALCIUM LEVEL 10.3 MG/DL (8.5-10.1); CARBON DIOXIDE LEVEL 25 MMOL/L (20-31); CHLORIDE LEVEL 101 MMOL/L (98-107); CREATININE FOR GFR 0.54 MG/DL (0.70-1.30); GLOMERULAR FILTRATION RATE > 60.0 (>60); GLUCOSE, FASTING 123 MG/DL (60-100); POTASSIUM SERUM 4.2 MMOL/L (3.5-5.1); SALICYLATE LEVEL < 3.0 MG/DL (<30); SODIUM LEVEL 136 MMOL/L (136-145); TOTAL PROTEIN 7.3 G/DL (5.7-8.2)
[2023-02-24 17:02] LABS: THYROID STIMULATING HORMONE 1.059 uIU/ML (0.55-4.78)
[2023-02-24] MEDS ORDERED: SERO400T PO (19:40)
[2023-02-24] MEDS ORDERED: ACETAMINOPHEN TAB 650MG DOSE (2X325MG) PO ONE (19:40)
[2023-02-24] MEDS: DIVALPROEX 500 MG TAB PO SCH (20:28)
[2023-02-24] MEDS: clonazePAM 0.5 MG TAB PO SCH (20:29)
[2023-02-24] MEDS: BENZTROPINE 1 MG TAB PO SCH (20:29)
[2023-02-24] MEDS ORDERED: QUEtiapine FUMARATE 200 MG TAB PO SCH (21:00)
[2023-02-24] MEDS ORDERED: BENZTROPINE 2 MG TAB PO SCH (21:00)
[2023-02-25] MEDS: BENZTROPINE 1 MG TAB PO SCH ×2 (08:47→20:54)
[2023-02-25] MEDS: clonazePAM 0.5 MG TAB PO SCH ×2 (08:47→20:54)
[2023-02-25] MEDS: DIVALPROEX 500 MG TAB PO SCH ×2 (08:47→20:54)
[2023-02-25] MEDS: NICOTINE 21MG/24HR 1 EA TRANSDERMAL TD SCH (11:29)
[2023-02-25] MEDS ORDERED: ALBUTEROL 90 MCG/ACT 8GM HFA INHALER INH PRN (11:40)
[2023-02-25] MEDS ORDERED: MED REC IN PROGRESS XX SCH (13:25)
[2023-02-25] MEDS ORDERED: DEPA1TAB3 PO (13:59)
[2023-02-25] MEDS ORDERED: METH-1164 PO (13:59)
[2023-02-25] MEDS ORDERED: CLON1TAB8 PO (13:59)
[2023-02-25] MEDS ORDERED: DICL1GEL3 TOP (13:59)
[2023-02-25] MEDS ORDERED: QUET200T2 PO (13:59)
[2023-02-25] MEDS ORDERED: INVE234I IM (14:03)
[2023-02-25] MEDS ORDERED: HOME MED LIST COMPLETE! XX SCH (14:05)
[2023-02-25] MEDS ORDERED: ACETAMINOPHEN TAB 650MG DOSE (2X325MG) PO ONE (15:10)
[2023-02-25] MEDS ORDERED: QUEtiapine FUMARATE 200 MG TAB PO SCH (21:00)
[2023-02-26] MEDS: NICOTINE 21MG/24HR 1 EA TRANSDERMAL TD SCH (08:50)
[2023-02-26] MEDS: DIVALPROEX 500 MG TAB PO SCH ×2 (08:50→20:04)
[2023-02-26] MEDS: BENZTROPINE 1 MG TAB PO SCH (08:50)
[2023-02-26] MEDS ORDERED: NICOTINE 21MG/24HR 1 EA TRANSDERMAL TD SCH (09:00)
[2023-02-26] MEDS: clonazePAM 0.5 MG TAB PO SCH (09:21)
[2023-02-26] MEDS ORDERED: BACITRACIN OINTMENT 30GM TUBE TOP ONE (10:20)
[2023-02-26] MEDS ORDERED: ACETAMINOPHEN TAB 650MG DOSE (2X325MG) PO ONE (11:05)
[2023-02-26] MEDS ORDERED: traZODone 50 MG TAB PO PRN (11:15)
[2023-02-26] MEDS ORDERED: MAALOX 30 ML SUSP *UDC PO PRN (11:15)
[2023-02-26] MEDS ORDERED: MOM 30ML SUSPENSION UDC PO PRN (11:15)
[2023-02-26] MEDS ORDERED: diphenhydrAMINE 25MG CAP PO PRN (11:15)
[2023-02-26] MEDS ORDERED: ENTER DRUG NAME HERE (PATIENT'S OWN MED) TOP PRN (11:15)
[2023-02-26 13:59] VITALS: BP 136/96; TEMP 97.3; O2SAT 99
[2023-02-26 14:03] VITALS: BP 136/96; TEMP 97.3; O2SAT 99
[2023-02-26] MEDS: methocarbamoL 500 MG TAB PO SCH ×2 (15:13→20:03)
[2023-02-26] MEDS: TIOTROPIUM INHALER/CAPSULE (SPIRIVA) INH SCH (15:15)
[2023-02-26] MEDS: OMEGA-3 1000MG CAPSULE PO SCH (20:03)
[2023-02-26] MEDS: clonazePAM 1 MG TAB PO SCH (20:03)
[2023-02-26] MEDS: PALIPERIDONE 6MG ER TAB (INVEGA) PO SCH (20:03)
[2023-02-26] MEDS: QUEtiapine FUMARATE 200 MG TAB PO SCH (20:03)
[2023-02-26] MEDS: BENZTROPINE 2 MG TAB PO SCH (20:03)
[2023-02-26] MEDS ORDERED: ENTER DRUG NAME HERE (PATIENT'S OWN MED) PO SCH (21:00)
[2023-02-26] MEDS: SALMETEROL DISKUS 50MCG INHALER (SEREVENT) INH SCH (23:15)
[2023-02-26] MEDS: DICLOFENAC EPOLAMINE 1.3% PATCH TOP SCH (23:15)
[2023-02-27] MEDS: ACETAMINOPHEN TAB 650MG DOSE (2X325MG) PO PRN ×2 (02:20→16:02)
[2023-02-27 06:48] VITALS: BP 131/77; TEMP 97.6; O2SAT 99
[2023-02-27] MEDS: BENZTROPINE 2 MG TAB PO SCH ×2 (08:05→20:26)
[2023-02-27] MEDS: QUEtiapine FUMARATE 200 MG TAB PO SCH ×2 (08:05→20:27)
[2023-02-27] MEDS: OMEGA-3 1000MG CAPSULE PO SCH ×2 (08:05→20:27)
[2023-02-27] MEDS: DIVALPROEX 500 MG TAB PO SCH ×2 (08:06→20:27)
[2023-02-27] MEDS: DICLOFENAC EPOLAMINE 1.3% PATCH TOP SCH ×2 (08:06→20:27)
[2023-02-27] MEDS: PALIPERIDONE 6MG ER TAB (INVEGA) PO SCH ×2 (08:06→20:26)
[2023-02-27] MEDS: TIOTROPIUM INHALER/CAPSULE (SPIRIVA) INH SCH (08:06)
[2023-02-27] MEDS: methocarbamoL 500 MG TAB PO SCH ×3 (08:06→20:26)
[2023-02-27] MEDS: SALMETEROL DISKUS 50MCG INHALER (SEREVENT) INH SCH ×2 (08:06→19:32)
[2023-02-27] MEDS: clonazePAM 1 MG TAB PO SCH ×2 (08:06→20:27)
[2023-02-27] MEDS: NICOTINE 21MG/24HR 1 EA TRANSDERMAL TD SCH ×2 (08:07→09:23)
[2023-02-27] MEDS: ALBUTEROL 90 MCG/ACT 8GM HFA INHALER INH PRN ×2 (08:13→20:25)
[2023-02-27] MEDS ORDERED: ENTER DRUG NAME HERE (PATIENT'S OWN MED) INH SCH (09:00)
[2023-02-27 12:21] LABS: HEMOGLOBIN A1c 5.4 % (4.0-6.0)
[2023-02-27 18:29] VITALS: BP 126/79; TEMP 97.4; O2SAT 98
[2023-02-27] MEDS: CLINDAMYCIN 150MG CAPSULE PO SCH (23:31)
[2023-02-28] MEDS: NORCO, ANEXSIA 5/325MG TABLET (HYDROcodone/ACETAMINOPHEN) PO PRN ×2 (00:15→08:48)
[2023-02-28] MEDS: CLINDAMYCIN 150MG CAPSULE PO SCH ×4 (05:33→23:11)
[2023-02-28 06:15] VITALS: BP 123/73; TEMP 97.6; O2SAT 97
[2023-02-28 06:38] VITALS: BP 105/70; TEMP 97.6; O2SAT 97
[2023-02-28 07:13] LABS: CHOLESTEROL RISK RATIO 6.1 (<5); HDL CHOLESTEROL 25.4 MG/DL (>40); LDL CHOLESTEROL 64.4 MG/DL (<100); NON-HDL-C 129.6 MG/DL
[2023-02-28] MEDS: TIOTROPIUM INHALER/CAPSULE (SPIRIVA) INH SCH (08:10)
[2023-02-28] MEDS: SALMETEROL DISKUS 50MCG INHALER (SEREVENT) INH SCH ×2 (08:11→20:05)
[2023-02-28] MEDS: QUEtiapine FUMARATE 200 MG TAB PO SCH ×2 (08:12→20:06)
[2023-02-28] MEDS: methocarbamoL 500 MG TAB PO SCH ×3 (08:12→20:06)
[2023-02-28] MEDS: BENZTROPINE 2 MG TAB PO SCH ×2 (08:12→20:06)
[2023-02-28] MEDS: PALIPERIDONE 6MG ER TAB (INVEGA) PO SCH ×2 (08:12→20:06)
[2023-02-28] MEDS: OMEGA-3 1000MG CAPSULE PO SCH ×2 (08:12→20:06)
[2023-02-28] MEDS: DIVALPROEX 500 MG TAB PO SCH ×2 (08:12→20:07)
[2023-02-28] MEDS: clonazePAM 1 MG TAB PO SCH ×2 (08:13→20:06)
[2023-02-28] MEDS: NICOTINE 21MG/24HR 1 EA TRANSDERMAL TD SCH ×3 (08:13→10:10)
[2023-02-28] MEDS: DICLOFENAC EPOLAMINE 1.3% PATCH TOP SCH ×3 (08:14→21:58)
[2023-02-28] MEDS: MUPIROCIN 2% OINT 22 GM TUBE TOP SCH ×2 (12:54→20:06)
[2023-02-28 16:24] VITALS: BP 135/74; TEMP 97.7; O2SAT 99
[2023-03-01] MEDS: ACETAMINOPHEN TAB 650MG DOSE (2X325MG) PO PRN ×2 (01:06→09:46)
[2023-03-01] MEDS: CLINDAMYCIN 150MG CAPSULE PO SCH ×4 (06:09→23:10)
[2023-03-01 06:40] VITALS: BP 130/80; TEMP 96.4; O2SAT 97
[2023-03-01] MEDS: TIOTROPIUM INHALER/CAPSULE (SPIRIVA) INH SCH (08:10)
[2023-03-01] MEDS: SALMETEROL DISKUS 50MCG INHALER (SEREVENT) INH SCH ×2 (08:11→20:20)
[2023-03-01] MEDS: DIVALPROEX 500 MG TAB PO SCH ×2 (08:11→20:21)
[2023-03-01] MEDS: clonazePAM 1 MG TAB PO SCH ×2 (08:12→20:21)
[2023-03-01] MEDS: PALIPERIDONE 6MG ER TAB (INVEGA) PO SCH ×2 (08:12→20:21)
[2023-03-01] MEDS: QUEtiapine FUMARATE 200 MG TAB PO SCH ×2 (08:12→20:21)
[2023-03-01] MEDS: methocarbamoL 500 MG TAB PO SCH ×3 (08:13→20:21)
[2023-03-01] MEDS: OMEGA-3 1000MG CAPSULE PO SCH ×2 (08:13→20:21)
[2023-03-01] MEDS: BENZTROPINE 2 MG TAB PO SCH ×2 (08:13→20:21)
[2023-03-01] MEDS: DICLOFENAC EPOLAMINE 1.3% PATCH TOP SCH ×2 (08:14→20:20)
[2023-03-01] MEDS: NICOTINE 21MG/24HR 1 EA TRANSDERMAL TD SCH (08:15)
[2023-03-01] MEDS: MUPIROCIN 2% OINT 22 GM TUBE TOP SCH ×3 (09:49→21:36)
[2023-03-01 16:59] VITALS: BP 125/66; TEMP 98; O2SAT 98
[2023-03-02] MEDS: ACETAMINOPHEN TAB 650MG DOSE (2X325MG) PO PRN ×2 (00:41→13:32)
[2023-03-02] MEDS: CLINDAMYCIN 150MG CAPSULE PO SCH ×4 (06:03→23:31)
[2023-03-02 06:30] VITALS: BP 145/85; TEMP 96.9; O2SAT 95
[2023-03-02] MEDS: OMEGA-3 1000MG CAPSULE PO SCH ×2 (07:57→20:04)
[2023-03-02] MEDS: BENZTROPINE 2 MG TAB PO SCH ×2 (07:57→20:03)
[2023-03-02] MEDS: SALMETEROL DISKUS 50MCG INHALER (SEREVENT) INH SCH ×2 (07:57→20:04)
[2023-03-02] MEDS: clonazePAM 1 MG TAB PO SCH ×2 (07:58→20:03)
[2023-03-02] MEDS: QUEtiapine FUMARATE 200 MG TAB PO SCH ×2 (07:58→20:04)
[2023-03-02] MEDS: PALIPERIDONE 6MG ER TAB (INVEGA) PO SCH ×2 (07:58→20:03)
[2023-03-02] MEDS: DIVALPROEX 500 MG TAB PO SCH ×2 (07:59→20:04)
[2023-03-02] MEDS: methocarbamoL 500 MG TAB PO SCH ×3 (07:59→20:03)
[2023-03-02] MEDS: NICOTINE 21MG/24HR 1 EA TRANSDERMAL TD SCH (08:00)
[2023-03-02] MEDS: TIOTROPIUM INHALER/CAPSULE (SPIRIVA) INH SCH (08:00)
[2023-03-02] MEDS: DICLOFENAC EPOLAMINE 1.3% PATCH TOP SCH ×2 (08:03→20:03)
[2023-03-02] MEDS: MUPIROCIN 2% OINT 22 GM TUBE TOP SCH ×2 (09:47→20:04)
[2023-03-02] MEDS ORDERED: CALCIUM CARBONATE 500 MG CHEW U/D PO ONE (16:00)
[2023-03-02 18:05] VITALS: BP 142/90; TEMP 97.5
[2023-03-02] MEDS: ALBUTEROL 90 MCG/ACT 8GM HFA INHALER INH PRN (20:07)
[2023-03-03] MEDS: CLINDAMYCIN 150MG CAPSULE PO SCH ×3 (05:31→17:54)
[2023-03-03 06:35] VITALS: BP 146/98; TEMP 97.4; O2SAT 97
[2023-03-03] MEDS: OMEGA-3 1000MG CAPSULE PO SCH ×2 (08:04→20:04)
[2023-03-03] MEDS: SALMETEROL DISKUS 50MCG INHALER (SEREVENT) INH SCH ×2 (08:04→20:04)
[2023-03-03] MEDS: QUEtiapine FUMARATE 200 MG TAB PO SCH ×2 (08:04→20:05)
[2023-03-03] MEDS: DIVALPROEX 500 MG TAB PO SCH ×2 (08:04→20:04)
[2023-03-03] MEDS: clonazePAM 1 MG TAB PO SCH ×2 (08:06→20:04)
[2023-03-03] MEDS: BENZTROPINE 2 MG TAB PO SCH ×2 (08:06→20:04)
[2023-03-03] MEDS: PALIPERIDONE 6MG ER TAB (INVEGA) PO SCH ×2 (08:06→20:05)
[2023-03-03] MEDS: methocarbamoL 500 MG TAB PO SCH ×3 (08:07→20:04)
[2023-03-03] MEDS: DICLOFENAC EPOLAMINE 1.3% PATCH TOP SCH ×2 (08:07→20:40)
[2023-03-03] MEDS: NICOTINE 21MG/24HR 1 EA TRANSDERMAL TD SCH (08:08)
[2023-03-03] MEDS: TIOTROPIUM INHALER/CAPSULE (SPIRIVA) INH SCH (08:08)
[2023-03-03] MEDS: MUPIROCIN 2% OINT 22 GM TUBE TOP SCH ×2 (11:00→20:05)
[2023-03-03 17:41] VITALS: BP 139/89; TEMP 97.1; O2SAT 98
[2023-03-04] MEDS: CLINDAMYCIN 150MG CAPSULE PO SCH ×2 (00:12→05:54)
[2023-03-04] MEDS: ACETAMINOPHEN TAB 650MG DOSE (2X325MG) PO PRN (04:47)
[2023-03-04 06:07] VITALS: BP 123/92; TEMP 97.1; O2SAT 97
[2023-03-04] MEDS: TIOTROPIUM INHALER/CAPSULE (SPIRIVA) INH SCH (07:51)
[2023-03-04] MEDS: SALMETEROL DISKUS 50MCG INHALER (SEREVENT) INH SCH (07:51)
[2023-03-04] MEDS: OMEGA-3 1000MG CAPSULE PO SCH (08:07)
[2023-03-04] MEDS: QUEtiapine FUMARATE 200 MG TAB PO SCH (08:07)
[2023-03-04] MEDS: PALIPERIDONE 6MG ER TAB (INVEGA) PO SCH (08:07)
[2023-03-04] MEDS: BENZTROPINE 2 MG TAB PO SCH (08:07)
[2023-03-04] MEDS: DIVALPROEX 500 MG TAB PO SCH (08:08)
[2023-03-04] MEDS: methocarbamoL 500 MG TAB PO SCH (08:08)
[2023-03-04] MEDS: clonazePAM 1 MG TAB PO SCH (08:08)
[2023-03-04] MEDS: NICOTINE 21MG/24HR 1 EA TRANSDERMAL TD SCH (08:08)
[2023-03-04] MEDS: DICLOFENAC EPOLAMINE 1.3% PATCH TOP SCH (08:09)
[2023-03-04] MEDS ORDERED: CLIN150C17 PO (09:08)
[2023-03-04] MEDS ORDERED: CLON1TAB8 PO (09:08)
[2023-03-04] MEDS ORDERED: DIVA500T94 PO (09:08)
[2023-03-04] MEDS ORDERED: QUET200T2 PO (09:08)
[2023-03-04] MEDS ORDERED: FISH1CAP26 PO (09:08)
[2023-03-04] MEDS ORDERED: DEPA1TAB3 PO (09:08)
[2023-03-04] MEDS ORDERED: BENZ2TAB48 PO (09:08)
[2023-03-04] MEDS ORDERED: QUET400T2 PO (09:08)
[2023-03-04] MEDS ORDERED: PALI1TAB3 PO (09:08)
[2023-03-04] MEDS: MUPIROCIN 2% OINT 22 GM TUBE TOP SCH (09:53)
== END 2023-03-04 11:12 | disposition home or self-care (01) | DRG 885 ==
LOC: M ED 15:35 → M PSY 02-26 13:48
PROVIDERS: ADMIT Student in an Organized Health Care Education/Training Program; ATTEND Student in an Organized Health Care Education/Training Program
DX: F25.0 Schizoaffective disorder, bipolar type (principal); S90.01XA Contusion of right ankle, initial encounter; M54.9 Dorsalgia, unspecified; F84.9 Pervasive developmental disorder, unspecified; F17.210 Nicotine dependence, cigarettes, uncomplicated; G40.909 Epilepsy, unspecified, not intractable, without status epilepticus; I10 Essential (primary) hypertension; E78.5 Hyperlipidemia, unspecified; J44.9 Chronic obstructive pulmonary disease, unspecified; Z79.899 Other long term (current) drug therapy; Z88.0 Allergy status to penicillin; Z88.6 Allergy status to analgesic agent; Z91.013 Allergy to seafood; Z91.040 Latex allergy status; Z62.811 Personal history of psychological abuse in childhood; W01.0XXA Fall on same level from slipping, tripping and stumbling without subsequent striking against object, initial encounter; Y92.9 Unspecified place or not applicable

== ENCOUNTER 2023-03-30 21:36 | Emergency (ER) | payer MEDICARE, MEDICAID ==
[~2023-03-30] VITALS: Ht 175.3 cm; Wt 95.9 kg
[~2023-03-30 21:36] MED LIST changes: +CLIN150C17 PO; +CLON1TAB8 PO; +DEPA1TAB3 PO; +DICL100G10 TOP; +FISH1CAP26 PO; +METH-1164 PO; +QUET200T2 PO; +SERO400T PO
[2023-03-30 21:43] VITALS: BP 141/82; TEMP 97.1; O2SAT 96
== END 2023-03-30 22:10 | disposition left against medical advice (07) ==
LOC: M ED 21:36
DX: Z53.21 Procedure and treatment not carried out due to patient leaving prior to being seen by health care provider (principal)

== ENCOUNTER 2023-04-13 19:56 | Emergency (ER) | payer MEDICARE, MEDICAID ==
[2023-04-13 20:22] VITALS: BP 131/73; TEMP 98.4; O2SAT 96
[2023-04-13] MEDS ORDERED: QUET200T2 PO (20:29)
== END 2023-04-14 02:31 | disposition left against medical advice (07) ==
LOC: M ED 19:56 → EDBD 19:56 → M ED 04-14 02:31
DX: Z53.21 Procedure and treatment not carried out due to patient leaving prior to being seen by health care provider (principal)

== ENCOUNTER 2023-04-14 00:42 | Emergency (ER) | payer MEDICARE, MEDICAID ==
[~2023-04-14] VITALS: Ht 175.3 cm; Wt 94.5 kg
[2023-04-14 00:55] VITALS: BP 120/85; TEMP 97.6; O2SAT 99
== END 2023-04-14 02:04 | disposition left against medical advice (07) ==
LOC: M ED 00:42
DX: Z53.21 Procedure and treatment not carried out due to patient leaving prior to being seen by health care provider (principal)

== ENCOUNTER 2023-04-14 19:38 | Emergency (ER) | payer MEDICARE, MEDICAID ==
[~2023-04-14] VITALS: Ht 175.3 cm; Wt 94.5 kg
[2023-04-14 19:42] VITALS: BP 135/88; TEMP 99; O2SAT 97
== END 2023-04-14 21:00 | disposition left against medical advice (07) ==
LOC: M ED 19:38
DX: Z53.21 Procedure and treatment not carried out due to patient leaving prior to being seen by health care provider (principal)

== ENCOUNTER 2023-04-15 15:03 | Emergency (ER) | payer MEDICARE, MEDICAID ==
[~2023-04-15] VITALS: Ht 175.3 cm; Wt 97.3 kg
[2023-04-15 15:06] VITALS: BP 110/62; TEMP 98; O2SAT 96
[2023-04-15 16:47] LABS: BASO % 0.4 % (0.0-1.0); EOS # 0.3 10^3/uL (0.0-0.5); EOS % 4.3 % (0.0-3.0); HEMATOCRIT 38.7 % (42.0-52.0); HEMOGLOBIN 13.3 g/dl (13.5-17.5); LYMPH # 2.1 10^3/uL (1.5-5.0); LYMPH % 30.4 % (24.0-44.0); MEAN CORPUSCULAR HEMOGLOBIN 30.9 pg (27.0-33.0); MEAN CORPUSCULAR HGB CONC 34.4 g/dl (32.0-36.5); MONO # 0.6 10^3/uL (0.0-0.8); MONO % 8.7 % (2.0-8.0); NEUTROPHILS # 3.7 10^3/uL (1.5-8.5); NEUTROPHILS % 54.7 % (36.0-66.0); PLATELET COUNT, AUTOMATED 254 10^3/uL (150-450); WHITE BLOOD COUNT 6.8 10^3/uL (4.0-10.0)
[2023-04-15 17:08] LABS: AMPHETAMINES LEVEL URINE NEGATIVE (NEGATIVE); BARBITURATES URINE NEGATIVE (NEGATIVE); BENZODIAZEPINES URINE NEGATIVE (NEGATIVE); COCAINE METABOLITE URINE NEGATIVE (NEGATIVE); METHADONE URINE NEGATIVE (NEGATIVE); OPIATES URINE NEGATIVE (NEGATIVE); PHENCYCLIDINE URINE NEGATIVE (NEGATIVE)
[2023-04-15 17:10] LABS: ETHYL ALCOHOL (ETHANOL) < 0.003 % (0.000-0.010)
[2023-04-15 17:11] LABS: ACETAMINOPHEN LEVEL < 2.0 UG/ML (10.0-20.0); CANNABINOIDS URINE POSITIVE (NEGATIVE); SALICYLATE LEVEL < 3.0 MG/DL (<30)
[2023-04-15 17:12] LABS: ALBUMIN 3.1 G/DL (3.2-5.2); ALKALINE PHOSPHATASE 71 U/L (46-116); ALT/SGPT 116 U/L (7.0-40); AST/SGOT 117 U/L (<34); BILIRUBIN,DIRECT 0.1 MG/DL (<0.4); BILIRUBIN,TOTAL 0.3 MG/DL (0.3-1.2); BLOOD UREA NITROGEN 8 MG/DL (9-23); CALCIUM LEVEL 8.4 MG/DL (8.5-10.1); CARBON DIOXIDE LEVEL 26 MMOL/L (20-31); CHLORIDE LEVEL 102 MMOL/L (98-107); CREATININE FOR GFR 0.47 MG/DL (0.70-1.30); GLOMERULAR FILTRATION RATE > 60.0 (>60); GLUCOSE, FASTING 100 MG/DL (60-100); POTASSIUM SERUM 4.1 MMOL/L (3.5-5.1); SODIUM LEVEL 133 MMOL/L (136-145); TOTAL PROTEIN 5.9 G/DL (5.7-8.2)
[2023-04-15 17:14] LABS: THYROID STIMULATING HORMONE 1.587 uIU/ML (0.55-4.78)
[2023-04-15 17:21] LABS: OSMOLALITY SERUM 273 MOSM/KG (275-295)
== END 2023-04-15 17:30 | disposition left against medical advice (07) ==
LOC: M ED 15:03
DX: F25.9 Schizoaffective disorder, unspecified (principal); I10 Essential (primary) hypertension; E78.5 Hyperlipidemia, unspecified; J44.9 Chronic obstructive pulmonary disease, unspecified; F31.9 Bipolar disorder, unspecified; F90.9 Attention-deficit hyperactivity disorder, unspecified type; Z88.0 Allergy status to penicillin; Z91.040 Latex allergy status; Z88.6 Allergy status to analgesic agent; Z91.013 Allergy to seafood; Z79.899 Other long term (current) drug therapy; Z79.51 Long term (current) use of inhaled steroids

== ENCOUNTER 2024-04-25 09:43 | Emergency (ER) | payer MEDICARE, MEDICAID ==
[~2024-04-25] VITALS: Ht 175.3 cm; Wt 101.1 kg
[2024-04-25 09:44] VITALS: BP 183/72; TEMP 98.2; O2SAT 98
== END 2024-04-25 12:12 | disposition left against medical advice (07) ==
LOC: M ED 09:43
DX: Z53.21 Procedure and treatment not carried out due to patient leaving prior to being seen by health care provider (principal)

== ENCOUNTER 2024-04-25 21:50 | Emergency (ER) | payer MEDICARE, MEDICAID ==
[~2024-04-25] VITALS: Ht 175.3 cm; Wt 98.4 kg
[2024-04-25 21:57] VITALS: BP 116/75; TEMP 96.3; O2SAT 97
== END 2024-04-25 22:00 | disposition left against medical advice (07) ==
LOC: M ED 21:50 → EDBD 21:50 → M ED 22:00
DX: Z53.21 Procedure and treatment not carried out due to patient leaving prior to being seen by health care provider (principal)